=== PATIENT | female | born 1980 | race Caucasian/White ===

== ENCOUNTER 2017-01-22 12:33 | Emergency (ER) | payer BC ==
[~2017-01-22] VITALS: Ht 165.1 cm; Wt 95.5 kg
[~2017-01-22 12:33] MED LIST: ANTIVERT 25MG25 MG PO; CALCIUM CITRAT200 MG PO; CEFTIN500 MG PO; ENTOCORT EC3 MG PO; IMURAN 50MG TAB50 MG PO; IMURAN100 MG PO; KLONOPIN WAFE0.25 MG PO; NEURONTIN100 MG/CAP; NEXIUM 40MG40 MG PO; NEXIUM40 MG PO; NORCO 325 MG-51 TAB PO; PERCOCET 325 MG1 TA2 PO; PREDNISONE10 MG PO; PRENATAL 191 CTB PO; PRENATAL VITAMI1 TA5 PO; ROXICODONE 55 MG/TAB PO; SOMA250 MG PO; URSO FORTE500 MG PO; URSODIOL500 MG PO; VITAMIN D 50,1.25 MG PO; VITAMIN D1000 IU PO; ZANTAC 150MG T150 MG PO; ZOFRAN 4MG T4 MG/TAB PO
[2017-01-22 12:37] VITALS: TEMP 98.8
[2017-01-22] MEDS ORDERED: VITAMIN D 50,1.25 MG PO (12:54)
[2017-01-22] MEDS ORDERED: NATURAL IRON65 MG (12:55)
[2017-01-22] MEDS ORDERED: COLACE 100100 MG/CAP PO (12:56)
[2017-01-22 13:21] LABS: BASO % 0.3 % (0.0-2.0); EOS % 0.6 % (0-4.0); GRAN # 4.8 (1.4-6.5); GRAN % 74.7 % (42.2-75.2); HEMOGLOBIN 12.7 g/dl (12.5-16.0); LYMPH # 1.1 (1.2-3.4); LYMPH % 16.4 % (20.0-51.0); MEAN CELL VOLUME 100 fl (80.0-100.0); MEAN CORPUSCULAR HEMOGLOBIN 35 pg (27.0-31.0); MEAN CORPUSCULAR HGB CONC 35 g/dl (33.0-37.0); MEAN PLATELET VOLUME 10.3 fl (7.4-10.4); MONO # 0.5 (0.1-0.6); MONO % 7.7 % (1.7-9.3); PLATELET COUNT 184 K/mm3 (130-400); RED BLOOD COUNT 3.68 M/mm3 (4.10-5.30); REDCELL DISTRIBUTION WIDTH-CV 13.2 % (11.5-14.5); WHITE BLOOD COUNT 6.5 K/mm3 (4.8-10.8)
[2017-01-22 13:29] LABS: HEMATOCRIT 36.7 % (37.0-47.0)
[2017-01-22 13:30] LABS: ADJUSTED CALCIUM 9.1 mg/dL (8.4-10.2); ALBUMIN 4.2 gm/dL (3.5-5.0); BILIRUBIN,TOTAL 0.7 mg/dL (0.0-1.0); CALCIUM 9.3 mg/dL (8.4-10.2); CREATININE, serum 0.48 mg/dL (0.52-1.25); POTASSIUM 3.8 mmol/L (3.4-5.0); TOTAL PROTEIN 7.4 gm/dL (6.4-8.2)
[2017-01-22 15:14] VITALS: BP 120/73
[2017-01-22 16:34] VITALS: PULSE 86
== END 2017-01-22 16:35 | disposition home or self-care (01) ==
LOC: COL.ER 12:33
PROVIDERS: Physician Assistant Medical
DX: O20.0 Threatened abortion (principal); Z3A.01 Less than 8 weeks gestation of pregnancy; Z87.19 Personal history of other diseases of the digestive system; Z90.49 Acquired absence of other specified parts of digestive tract; Z90.89 Acquired absence of other organs; Z98.890 Other specified postprocedural states
CPT/HCPCS: J2791

== ENCOUNTER 2018-01-08 11:15 | Outpatient (RCR) | payer BC ==
[~2018-01-08 11:15] MED LIST changes: +COLACE 100100 MG/CAP PO; +NATURAL IRON65 MG
== END 2018-03-22 | disposition home or self-care (01) ==
LOC: WSST
DX: J38.2 Nodules of vocal cords (principal)

== ENCOUNTER → 2019-05-11 | Outpatient (CLI) | payer BC | LOC: COL.VAS 13:18 | DX: M79.89 Other specified soft tissue disorders (principal) ==

== ENCOUNTER → 2020-05-05 | Outpatient (CLI) | payer BC ==
[~2020-05-05] MED LIST changes: +CALCIUM CARBON650 M2 PO; +CRINONE4%; +ENDOMETRIN100 MG VG; +IMVEXXY10 MCG VG; +NORCO 325 MG-7.1 TAB PO; +OMNICEF 300MG300 MG PO; +PEPCID40 MG PO; +PROGESTERO50 MG/1 ML IM; +TAMIFLU 75MG75 MG PO; +TYLENOL 325MG325 MG PO; +VITAMIND3 5000 PO; +ZOFRAN ODT4 MG PO; +ZYRTEC5 MG PO
== END ==
LOC: COL.LAB 10:32
DX: Z12.31 Encounter for screening mammogram for malignant neoplasm of breast (principal); Z98.84 Bariatric surgery status

== ENCOUNTER 2020-12-22 16:15 | Emergency (ER) | payer BC ==
[~2020-12-22] VITALS: Ht 165.1 cm; Wt 102.3 kg
[2020-12-22] MEDS ORDERED: IBU400 MG PO (17:01)
[2020-12-22 18:54] LABS: COLLECTION METHOD CLEAN CATCH
[2020-12-22 19:01] LABS: PH 5 (5-8); SQUAMOUS EPITHELIAL 0-2 /hpf; URINE APPEARANCE Clear; URINE BACTERIA None Seen /hpf; URINE BILIRUBIN Negative (NEGATIVE); URINE BLOOD Negative (NEGATIVE); URINE COLOR Yellow; URINE GLUCOSE Negative (NEGATIVE); URINE KETONE Negative (NEGATIVE); URINE LEUKOCYTE ESTERASE Negative (NEGATIVE); URINE NITRATE Negative (NEGATIVE); URINE PROTEIN(semi-quant) Negative (NEGATIVE); URINE UROBILINOGEN Negative (NEGATIVE)
[2020-12-22 19:04] LABS: BASO % 0.7 % (0.0-2.0); EOS # 0.2 (0.0-0.7); EOS % 3.9 % (0-4.0); GRAN % 67.6 % (42.2-75.2); HEMOGLOBIN 11.8 g/dl (12.5-16.0); MEAN CELL VOLUME 102 fl (80.0-100.0); MEAN CORPUSCULAR HEMOGLOBIN 34 pg (27.0-31.0); MEAN CORPUSCULAR HGB CONC 34 g/dl (33.0-37.0); MEAN PLATELET VOLUME 10.4 fl (7.4-10.4); MONO # 0.6 (0.1-0.6); MONO % 10.6 % (1.7-9.3); PLATELET COUNT 213 K/mm3 (130-400); RED BLOOD COUNT 3.43 M/mm3 (4.10-5.30); REDCELL DISTRIBUTION WIDTH-CV 13.4 % (11.5-14.5)
[2020-12-22 19:05] LABS: HEMATOCRIT 35.1 % (37.0-47.0)
[2020-12-22 19:20] LABS: ALBUMIN 4.1 gm/dL (3.5-5.0); BILIRUBIN,TOTAL 0.3 mg/dL (0.0-1.0); CALCIUM 9.3 mg/dL (8.4-10.2); CREATININE, serum 0.49 (0.52-1.25); TOTAL PROTEIN 7.6 gm/dL (6.4-8.2)
[2020-12-22 19:22] LABS: C-REACTIVE PROTEIN 0.5 mg/dL (0.0-0.9)
[2020-12-22] MEDS ORDERED: PERCOCET 325 MG1 TA2 PO (22:22)
[2020-12-22 23:00] VITALS: BP 121/69; PULSE 72; TEMP 97.9
== END 2020-12-22 23:00 | disposition home or self-care (01) ==
LOC: COL.ER 16:15
PROVIDERS: Nurse Practitioner
DX: N83.201 Unspecified ovarian cyst, right side (principal); Z90.49 Acquired absence of other specified parts of digestive tract; Z88.2 Allergy status to sulfonamides
CPT/HCPCS: J1885; J2405; J3010; J7030; Q9967

== ENCOUNTER → 2021-05-30 | Outpatient (CLI) | payer BC ==
[~2021-05-30] MED LIST changes: +IBU400 MG PO
== END ==
LOC: MHCPAIN 09:57
DX: M47.896 Other spondylosis, lumbar region (principal); M53.3 Sacrococcygeal disorders, not elsewhere classified; M70.61 Trochanteric bursitis, right hip; G57.13 Meralgia paresthetica, bilateral lower limbs
CPT/HCPCS: G0463